=== PATIENT | female | born 1955 | race Caucasian/White ===

== ENCOUNTER → 2019-11-04 10:05 | Outpatient (CLI) | payer OTHER, SELFPAY ==
--- NOTE | ~2019-11-04 | CT_ITS ---
EXAMINATION: CT chest wo con DATE: 11/04/2019 10:33 INDICATION: Solitary pulmonary nodule TECHNIQUE: Computed tomography (CT) of the chest was performed without intravenous contrast. The dose -length product (DLP) was 403.03 mGy-cm. Automated exposure control and iterative reconstruction tech TrashOut were employed. COMPARISON: 03/27/2016 FINDINGS: There are stable nodules of the left upper lobe which measure up to 4 mm. A previously desc ribed right lower lobe nodule is no longer evident, consistent with resolved infection or inflammatio n. No new pulmonary nodules are identified. The lungs are free of acute opacities. There is no pleura l effusion or pneumothorax. No pathologically enlarged thoracic lymph nodes are identified. The heart size is normal. The liver is diffusely low in attenuation when compared with the spleen, consistent with hepatic steatosis. Cholelithiasis is noted. There is moderate thoracic spondylosis. IMPRESSION: 1. Stable left lung nodules, consistent with old granulomatous disease. No new or suspicious pulmonar y nodule identified. Reviewed, dictated and finalized at location A. ATION ADMINISTRATOR IMPRESSION: 1. Stable left lung nodules, consistent with old granulomatous disease. No new or suspicious pulmonary nodule identified.
== END ==
PROVIDERS: Visit Provider Internal Medicine Critical Care Medicine
DX: R91.1 Solitary pulmonary nodule (principal); R91.8 Other nonspecific abnormal finding of lung field
CPT/HCPCS: 71250

== ENCOUNTER 2019-11-12 08:20 | Outpatient (CLI) | payer OTHER, SELFPAY ==
--- NOTE | 2019-11-12 09:52 | PCRCNOTE ---
PT. UNABLE TO DO NIOX TESTING DESPITE MULTIPLE ATTEMPTS
--- NOTE | 2019-11-12 11:01 | WPDPFTINT ---
PFT Interpretation PFT Interpretation: This PFT met all criteria for ATS standards and reproducibility FEV/FVC post bronchodilator 85% of predicted FEV1 83% FVC 71 % TLC 70% RV 64% RV/TLC 35% DLCO 57% of predicted when adjusted for alveolar volume but not adjusted for hemoglobin Flow volume loops showed a restrictictive pattern Impression: A restrictive ventilatory defect is present with moderately reduced diffusion capacity. This may correlate with obesity but ILD, pulmonary fibrosis or other intrinsic lung disease may be present. Clinical and radiographic correlation is advised correlation is advised.
--- NOTE | 2019-11-12 11:10 | WPDSIXMINUTE ---
Six Minute Walk Six Minute Walk: The patients O2 sats started at 98% and dropped as low as 90% Total walk distance 243.84 meters conclusion: While this represents significant exertional hypoxia, she did not drop down to a low enough level to warrant home oxygen therapy.
== END 2019-11-12 08:21 | disposition home or self-care (01) ==
PROVIDERS: PCP Internal Medicine; Visit Provider Internal Medicine Critical Care Medicine
DX: J44.9 Chronic obstructive pulmonary disease, unspecified (principal)
CPT/HCPCS: 94060; 94726; 94729

== ENCOUNTER 2019-11-24 09:06 | Outpatient (CLI) | payer OTHER, SELFPAY ==
--- NOTE | 2019-12-06 16:54 | SLEEP_ITS ---
CPAP titration. DATE OF STUDY: 11/24/2019 ORDERING PHYSICIAN: Fabiana Sarkar M.D. REASON FOR THIS STUDY: Known history of obstructive sleep apnea syndrome, last study was 2013 needs a retitration. HISTORY: This patient is a 64-year-old female, 64 inches tall, weighing 351 pounds with a body mass index of 60.2. She was diagnosed with obstructive sleep apnea syndrome in 2013. On October 04, 2013, she had a split night study with severe apnea with an AHI of 36 associated with continuous snoring and ekoi-md-lgjofvpt myoclonus and multiple oxygen desaturation. Her optimal pressure was 7 cm with correction of respiratory events. Her normal bedtime is around 10:00 p.m. and she wakes between 7 and 7:30 a.m. using an alarm. She has dreams most nights. She wakes 1 or 2 times per week to use the bathroom at night. She drinks 6 cups of coffee in the morning. She has some feet swelling over night and her ankles swell during the day. MEDICAL COMORBIDITIES: Rhinitis, shortness of breath, morbid obesity, hypertension, asthma, hypothyroidism. MEDICATIONS: 1. Symbicort. 2. Lisinopril. 3. Singulair. 4. Levothyroxine. 5. Lasix. 6. Flonase. 7. Cetirizine. HABITS: She has been a lifelong nonsmoker. She drinks significant coffee 6 cups per day. No alcohol. DESCRIPTION OF THE STUDY: On the [place] Sleepiness Scale, her score is not recorded. This was conducted as a full night CPAP titration using the MicroPhage multiple channel system including EOG, EEG, submental EMG, EKG, nasal and oral airflow using thermistors and nasal pressure sensors, chest and abdominal belts, body position data and pulse oximetry. The study was scored using [facility] guidelines. Duration was 403 minutes. Sleep time was 302 minutes. Sleep efficiency was 74.9%. Sleep latency 10.7 minutes. REM latency 68 minutes. She had 32 awakenings and spent 23% of the study, 90.3 minutes awake after sleep onset. She had 6.8% stage 1 sleep, 55.7% stage 2 sleep, 14.5% stage REM. None of this test was in the supine position. Sleep was somewhat fragmented. She had 4 REM cycles. The apnea-hypopnea index was 4.6. These were all obstructive events. Unfortunately, she had no supine REM. She had 18 obstructive hypopneas in non-supine REM for an index of 18.9. She had 5 obstructive hypopneas in non-supine non-REM for an index of 1.2. Non-supine index overall was 4.6. The lowest desaturation was 87%. She had 23 desaturations of 4% or greater for an index of 3.4. She spent 0.3 minutes below 88%, which was 0.1% of the study. Mean saturation was 93.6%. AROUSALS: 192 arousals for an index of 28.6. She had 3 hypopneas causing arousal for an index of 0.4, 188 spontaneous arousals for an index of 28 and 1 limb movement causing arousal for an index of 0.1. LIMB MOVEMENTS: 2 isolated limb movements for an index of 0.4. EKG: Sinus with a mean heart rate of 74. During this titration, the patient started in room 1, but due to technical problems with the pulse oximeter and the head box, the patient was eventually moved to room 3 after switching out equipment, did not correct the problems. She used a medium ResMed AirFit F20 full face mask. She began at 7 cm with heated humidity. She was titrated to a maximum of 14 cm. At this setting, the patient had an apnea-hypopnea index of 2.5, sleep efficiency of 85%, spent 53 minutes in bed, 15 minutes in REM, 32 minutes in non-REM, had a minimum saturation of 92%. This appeared to be the optimal pressure. She had 2 hypopneas at this setting. IMPRESSION: 1. This CPAP titration shows an optimal pressure of 14 cm of water using a medium AirFit F20 full face mask. She did have REM, but she did not have supine REM during the study. We would recomme
== END 2019-11-24 09:07 | disposition home or self-care (01) ==
PROVIDERS: PCP Internal Medicine; Visit Provider Internal Medicine Critical Care Medicine
DX: G47.33 Obstructive sleep apnea (adult) (pediatric) (principal)
CPT/HCPCS: 95811

== ENCOUNTER → 2020-05-30 12:58 | Outpatient (CLI) | payer OTHER, SELFPAY ==
--- NOTE | ~2020-05-30 | MM_ITS ---
EXAMINATION: MM screening arianna BI w varsha HISTORY: Screening mammogram TECHNIQUE: Craniocaudal and mediolateral oblique 3-D tomosynthesis images were obtained and synthetic 2-D images were generated. CAD analysis was submitted and interpreted. COMPARISON: No prior mammogram is available for comparison at this institution. BREAST PARENCHYMAL COMPOSITION: The breasts are almost entirely fatty. FINDINGS: There is no evidence of suspicious mass, calcification, or architectural distortion to sugg est malignancy in either breast. There has been no suspicious interval change. IMPRESSION: 1. No mammographic evidence of malignancy. 2. Recommend routine screening mammography in one year. BI-RADS Category 1: Negative Reviewed, dictated and finalized at location A.
== END ==
PROVIDERS: PCP Internal Medicine; Visit Provider Nurse Practitioner
DX: Z12.31 Encounter for screening mammogram for malignant neoplasm of breast (principal)
CPT/HCPCS: 77063; 77067

== ENCOUNTER 2021-04-20 12:50 | Outpatient (CLI) | payer MEDICARE, SELFPAY ==
--- NOTE | ~2021-04-20 | XR_ITS ---
XR chest 2V DATE: 04/20/2021 13:08 INDICATION: Shortness of breath TECHNIQUE: PA and lateral views COMPARISON: 11/04/2019 CT chest FINDINGS: Heart size is within normal range. No pulmonary vascular congestion or pleural effusion, pu lmonary infiltrate or consolidation or pneumothorax. Degenerative spurring of the thoracic spine. IMPRESSION: No active cardiopulmonary disease Reviewed, dictated and finalized at location A.
--- NOTE | ~2021-04-20 | NM_ITS ---
EXAMINATION: NM pulmonary perfusion DATE: 04/20/2021 13:46 INDICATION: Shortness of breath. TECHNIQUE: 5.5 mCi Tc-99m MAA was administered intravenously for perfusion images. Scintigraphic cherri ges of the chest were obtained. COMPARISON: Chest 2 views 04/20/2021 FINDINGS: Perfusion images show no defects. IMPRESSION: 1. Normal exam. Pulmonary embolism absent. Reviewed, dictated and finalized at location A.
== END 2021-04-20 12:51 | disposition home or self-care (01) ==
LOC: ANHIMG 12:51
PROVIDERS: PCP Internal Medicine; Visit Provider Nurse Practitioner Family
DX: R06.02 Shortness of breath (principal)
CPT/HCPCS: 71046; 78580; A9540

== ENCOUNTER 2021-05-30 01:27 | Day surgery (SDC) | payer MEDICARE, SELFPAY ==
[2021-05-17 13:25] VITALS: BMI 63.6
[2021-05-30 08:33] VITALS: BP 143/65; PULSE 90; RESP 22; TEMP 36.6; O2SAT 96; BMI 64.1
[2021-05-30] MEDS: LACTATED RINGERS 1,000 ML 150 ML IV CONT (08:46)
--- NOTE | 2021-05-30 08:53 | WPDANESEPPF ---
Anes - Initial Pre Proc Eval Procedure: Operation Date: 05/30/21 09:00 Proposed Procedures p Screening Colonoscopy - Solitario Andrea MD Date/Time: 05/30/21 08:53 Surgeon: Solitario Andrea MD Pre Op Diagnosis: neoplasm screening Patient Data Age: 65 Gender: F Height: 1.63 m Weight: 169.6 kg Last Vital Signs Temp 36.6 C 05/30/21 08:33 Pulse 90 05/30/21 08:33 Resp 22 H 05/30/21 08:33 BP 143/65 H 05/30/21 08:33 Pulse Ox 96 05/30/21 08:33 Allergies Allergy/AdvReac Type Severity Reaction Status Date / Time cephalexin Allergy Unknown Unknown Verified 05/30/21 08:31 Penicillins Allergy Unknown Unknown Verified 05/30/21 08:31 Home Medications Medication Instructions Recorded Confirmed Type nystatin 100,000 unit/gram topical 1 applic TOPICAL BID 11/08/19 05/17/21 History powder albuterol sulfate 90 mcg/actuation 2 puff INHALATION Q4-6H PRN gm 12/14/19 05/17/21 History aerosol inhaler cetirizine 10 mg tablet 10 mg PO DAILY 12/14/19 05/17/21 History multivitamin 1 tablet PO DAILY 06/23/20 05/17/21 History oxybutynin chloride 10 mg 10 mg PO DAILY 06/23/20 05/17/21 History tablet,extended release 24 hr fluticasone propionate 50 See Rx Instructions .ROUTE 09/19/20 05/17/21 Rx mcg/actuation nasal .COMPLEX #16 gram spray,suspension furosemide 40 mg tablet 40 mg PO QAM #90 tablet 09/19/20 05/17/21 Rx lisinopril 20 mg tablet 20 mg PO DAILY #90 tablet 09/19/20 05/17/21 Rx montelukast 10 mg tablet 10 mg PO DAILY #90 tablet 09/19/20 05/17/21 Rx budesonide-formoterol HFA 160 See Rx Instructions .ROUTE 09/20/20 05/17/21 Rx mcg-4.5 mcg/actuation aerosol .COMPLEX 90 Days #30.6 g inhaler levothyroxine 112 mcg tablet 112 mcg PO DAILY #90 tablet 01/15/21 05/17/21 Rx Patient hx anesthesia problems: none Family hx anesthesia problems: none PMFSH Past Medical History Medical History (Updated 05/30/21 @ 08:55 by Guilherme Krishnan MD) Asthma Asthma with COPD Body mass index (BMI) of 60.0 to 69.9 in adult COPD (chronic obstructive pulmonary disease) with chronic bronchitis Essential (primary) hypertension Hypothyroidism (acquired) Morbid (severe) obesity due to excess calories Obstructive sleep apnea Other and unspecified hyperlipidemia Family History Family History Father Hypertension Mother Asthma Social History Social History Smoking status: Never smoker Alcohol intake: never Living arrangements: with family Gender identity (if verbalized by the patient): Female Sexual Orientation (if Verbalized by the Patient): Straight or Heterosexual Spiritual care concerns: No Anes - Eval Final PreProcedure Day of Procedure 05/30/21 08:53 Patient weight: super morbidly obese Heart: regular rate and rhythm Lungs: clear to auscultation and normal air movement Airway: Mallampati scale class II Neurological: alert and oriented Last oral intake: >/= 8 hours ASA classification: IV Emergent: no Anesthetic plan: proceed Anesthesia type and monitoring: general GIVS Informed Consent: The patient's anesthetic plan and its attendant risks and benefits were discussed with the patient/family/POA. Questions were solicited and answers provided to the satisfaction of the patient/family/POA.
--- NOTE | 2021-05-30 09:08 | PM.HPGS ---
History of Present Illness History of Present Illness Consent: Risks, benefits, and alternatives have been discussed and questions answered. Patient agrees to proceed with procedure. Chief complaint: neoplasm screening Narrative: Daphne Lopez is a 65 year old female with colon polyp 2015 Review of Systems Constitutional: Constitutional: Denies headache(s) and Denies weakness Eyes: Eyes: Denies blurry vision ENT: Reports Normal hearing present, Denies headache(s) and Denies neck pain Cardiovascular: Cardiovascular: Denies chest pain and Denies dyspnea Respiratory: Respiratory: Denies dyspnea Gastrointestinal: Gastrointestinal: Reports no additional gastrointestinal complaints Genitourinary: Genitourinary: Denies dysuria Musculoskeletal: Musculoskeletal: Denies neck pain Integumentary/Breasts: Skin/Breast: Denies dry skin Neurologic: Reports Normal hearing present, Denies headache(s) and Denies weakness Psychiatric: Psychiatric: Denies anxiety Endocrine: Endocrine: Denies change in body appearance Hematologic/Lymphatic: Hematologic/Lymphatic: Denies easy bleeding Allergic/Immunologic: Allergic/Immunologic: Denies urticaria [facility] Past Medical History Medical History (Updated 05/30/21 @ 09:09 by Solitario Andrea MD) Asthma Asthma with COPD Body mass index (BMI) of 60.0 to 69.9 in adult Colon cancer screening COPD (chronic obstructive pulmonary disease) with chronic bronchitis Essential (primary) hypertension Hypothyroidism (acquired) Morbid (severe) obesity due to excess calories Obstructive sleep apnea Other and unspecified hyperlipidemia Family History Family History Father Hypertension Mother Asthma Social History Social History Smoking status: Never smoker Alcohol intake: never Living arrangements: with family Gender identity (if verbalized by the patient): Female Sexual Orientation (if Verbalized by the Patient): Straight or Heterosexual Spiritual care concerns: No Meds Home Medications and Allergies Home Medications Medication Instructions Recorded Confirmed Type nystatin 100,000 unit/gram topical 1 applic TOPICAL BID 11/08/19 05/17/21 History powder albuterol sulfate 90 mcg/actuation 2 puff INHALATION Q4-6H PRN gm 12/14/19 05/17/21 History aerosol inhaler cetirizine 10 mg tablet 10 mg PO DAILY 12/14/19 05/17/21 History multivitamin 1 tablet PO DAILY 06/23/20 05/17/21 History oxybutynin chloride 10 mg 10 mg PO DAILY 06/23/20 05/17/21 History tablet,extended release 24 hr fluticasone propionate 50 See Rx Instructions .ROUTE 09/19/20 05/17/21 Rx mcg/actuation nasal .COMPLEX #16 gram spray,suspension furosemide 40 mg tablet 40 mg PO QAM #90 tablet 09/19/20 05/17/21 Rx lisinopril 20 mg tablet 20 mg PO DAILY #90 tablet 09/19/20 05/17/21 Rx montelukast 10 mg tablet 10 mg PO DAILY #90 tablet 09/19/20 05/17/21 Rx budesonide-formoterol HFA 160 See Rx Instructions .ROUTE 09/20/20 05/17/21 Rx mcg-4.5 mcg/actuation aerosol .COMPLEX 90 Days #30.6 g inhaler levothyroxine 112 mcg tablet 112 mcg PO DAILY #90 tablet 01/15/21 05/17/21 Rx Allergies Allergy/AdvReac Type Severity Reaction Status Date / Time cephalexin Allergy Unknown Unknown Verified 05/30/21 08:31 Penicillins Allergy Unknown Unknown Verified 05/30/21 08:31 Vital Signs Vital Signs - 24 hr 05/30/21 08:33 Temperature 97.9 F Pulse Rate 90 Respiratory Rate 22 H Blood Pressure 143/65 H Pulse Oximetry 96 Exam Const: General: comfortable and no acute distress HENMT: General nose exam: Normal nares present Eyes: General: appearance normal, both eyes and all related structures Neck: Neck: no JVD Resp: Auscultation: clear to auscultation bilaterally Cardio: Rate: regular rate Rhythm: regular rhythm GI: Inspection: non-distended GI Palp: Yes Soft to
[2021-05-30 10:06] VITALS: BP 147/85; PULSE 85; RESP 28; O2SAT 96
[2021-05-30 10:16] VITALS: BP 121/41; PULSE 79; RESP 22; O2SAT 96
[2021-05-30 10:26] VITALS: BP 147/85; PULSE 85; RESP 28; O2SAT 96
== END 2021-05-30 11:13 | disposition home or self-care (01) ==
PROVIDERS: PCP Internal Medicine; Visit Provider Internal Medicine Gastroenterology
PROC: 0DJD8ZZ Inspection of Lower Intestinal Tract, Via Natural or Artificial Opening Endoscopic (ICD-10-PCS; CPT 45378; principal; 2021-05-30 09:00)
DX: Z12.11 Encounter for screening for malignant neoplasm of colon (principal); K57.30 Diverticulosis of large intestine without perforation or abscess without bleeding; D12.2 Benign neoplasm of ascending colon; K62.1 Rectal polyp; K64.8 Other hemorrhoids; K64.4 Residual hemorrhoidal skin tags; J44.9 Chronic obstructive pulmonary disease, unspecified; I10 Essential (primary) hypertension; E03.9 Hypothyroidism, unspecified; G47.33 Obstructive sleep apnea (adult) (pediatric); E78.5 Hyperlipidemia, unspecified; E66.01 Morbid (severe) obesity due to excess calories; Z68.44 Body mass index [BMI] 60.0-69.9, adult; Z79.51 Long term (current) use of inhaled steroids
CPT/HCPCS: 45385; 45381; 45380; 88305; J2704; J7120

== ENCOUNTER → 2021-06-01 10:27 | Outpatient (CLI) | payer MEDICARE, SELFPAY ==
--- NOTE | ~2021-06-01 | MM_ITS ---
EXAMINATION: MM screening arianna BI w varsha HISTORY: Screening mammogram TECHNIQUE: Craniocaudal and mediolateral oblique 3-D tomosynthesis images were obtained and synthetic 2-D images were generated. CAD analysis was submitted and interpreted. COMPARISON: No prior mammogram is available for comparison at this institution. BREAST PARENCHYMAL COMPOSITION: The breasts are almost entirely fatty. FINDINGS: There is no evidence of suspicious mass, calcification, or architectural distortion to sugg est malignancy in either breast. There has been no suspicious interval change. IMPRESSION: 1. No mammographic evidence of malignancy. 2. Recommend routine screening mammography in one year. BI-RADS Category 1: Negative Reviewed, dictated and finalized at location A.
== END ==
PROVIDERS: Visit Provider Nurse Practitioner
DX: Z12.31 Encounter for screening mammogram for malignant neoplasm of breast (principal)
CPT/HCPCS: 77063; 77067

== ENCOUNTER 2021-06-12 07:38 | Outpatient (RCR) | payer MEDICARE, SELFPAY ==
[2021-04-10 13:45] VITALS: BMI 64.5
== END 2021-07-09 23:59 | disposition home or self-care (01) ==
LOC: ANHWOC 07:38
PROVIDERS: PCP Internal Medicine; Visit Provider Obstetrics & Gynecology Gynecology
DX: S70.321D Blister (nonthermal), right thigh, subsequent encounter (principal)
CPT/HCPCS: 99211; 99212; A9270; G0463

== ENCOUNTER 2021-07-13 12:25 | Outpatient (CLI) | payer MEDICARE, SELFPAY ==
--- NOTE | ~2021-07-13 | CT_ITS ---
EXAMINATION: CT diagnostic chest wo con DATE: 07/13/2021 14:24 INDICATION: Covid 19 infection. Asthma. TECHNIQUE: Computed tomography (CT) of the chest was performed without intravenous contrast. Automate d exposure control and iterative reconstruction technique were employed. Exam dose: 851.70 mGy-cm to sissy exam DLP. COMPARISON: November 04, 2019 CT chest 04/20/2021 2 view chest FINDINGS: Normal heart size. No pericardial or pleural effusion. No thoracic aortic aneurysm. There i s thoracic aortic and some great vessel calcification. No hilar or mediastinal enlargement. No pulmonary infiltrate or consolidation or pulmonary mass lesion. Diffuse hepatic steatosis. Diffuse idiopathic skeletal hyperostosis of the thoracic spine. No suspicious osteolytic or osteoblas tic lesions. IMPRESSION: Diffuse hepatic steatosis Diffuse idiopathic skeletal hyperostosis of the thoracic spine Reviewed, dictated and finalized at Location A. Reviewed, dictated and finalized at location A.
[2021-07-13 13:30] VITALS: PULSE 108; O2SAT 95
[2021-07-13 13:35] VITALS: PULSE 118; O2SAT 93
[2021-07-13 13:50] VITALS: PULSE 92; O2SAT 95
--- NOTE | 2021-07-13 16:13 | HOMEO2EVAL ---
Evaluation was performed at [facility] Home Oxygen Evaluation RC: Home Oxygen (O2) Evaluation Start: 07/13/21 16:12 Freq: Status: Active Protocol: RPE Activity Type Activity Date Activity User E-Sign Co-Sign Detail Recorded Client Recorded Date Recorded By Document 07/13/21 13:30 PARISH [id number] 07/13/21 16:13 PARISH Document 07/13/21 13:35 PARISH [id number] 07/13/21 16:13 PARISH Document 07/13/21 13:50 PARISH [email or web address] 07/13/21 16:13 PARISH 07/13/21 07/13/21 07/13/21 13:30 13:35 13:50 Home O2 Evaluation Test Phase Resting Exercise Resting Oxygen Delivery Room Air Room Air Room Air Pulse Oximetry (90-100 %) 95 93 95 Pulse Rate (60-100 beats/min) 108 H 118 H 92 Ambulation Distance (feet) 400 Home Oxygen Evaluation Comments No home O2 required Treatment Charges O2 Evaluation - Inpatient
--- NOTE | 2021-07-16 09:56 | WPDPFTINT ---
PFT Procedure Performed PFT Procedure Performed Spirometry with Pre/Post Bronchodilator Plethysmography (Lung Vol) Diffusing Cap (DLCO) Flow Vol Loop PFT Interpretation Lung volumes were measured with the body plethysmography method. The diminished across the board lung volumes are indicative of restrictive respiratory disease. Spirometry showed diminished expiratory flow rates and a normal FEV1 to FVC ratio of 78%, also consistent with restrictive respiratory disease. Lung diffusion capacity is borderline normal at 76% predicted. In comparison to a previous study in November of 2019, the post bronchodilator FVC and FEV1 are little changed as is the total lung capacity. The lung diffusion capacity is now 76% from a previous value of 57%. The flow volume loop is consistent with restrictive respiratory disease. Overall this pulmonary function testing is consistent with morbid obesity. Clinical correlation advised. Impression: Mild restrictive respiratory disease. Borderline normal lung diffusion capacity.
== END 2021-07-13 12:26 | disposition home or self-care (01) ==
PROVIDERS: PCP Internal Medicine; Visit Provider Internal Medicine Pulmonary Disease
DX: J45.909 Unspecified asthma, uncomplicated (principal); J18.9 Pneumonia, unspecified organism; R94.2 Abnormal results of pulmonary function studies
CPT/HCPCS: 71250; 94060; 94618; 94726; 94729

== ENCOUNTER 2021-07-19 08:08 | Outpatient (CLI) | payer MEDICARE, SELFPAY ==
--- NOTE | ~2021-07-19 | US_ITS ---
EXAMINATION: US art doppler w press LE BI EXAM DATE: 07/19/2021 08:52 INDICATION: Cesar Leg Pain;Cesar Le Edema;Decreased Pedal Pulses Pain. TECHNIQUE: Segmental pressures and plethysmographic and Doppler waveforms of the brachial and lower e xtremity arteries were obtained. There is no prior study for comparison. FINDINGS: Right and left brachial artery pressures of 193 mm Hg and 194 mm Hg, respectively, are concordant (no rmal difference <= 30 mmHg). RIGHT LEG: The ankle-brachial index (ANNALEE) is 0.89 (normal >= 0.9-1). The great toe-brachial index (TBI) is 0.57 (normal >= 0.65). The lower extremity ratios, segmental pressure gradients as follows; Dorsalis pedis: 0.78 (151 mmHg). Posterior tibial: 0.89 (172 mmHg). (Normal gradients <= 20-30 mmHg between adjacent levels on the same leg or the same levels on the two legs). Arterial waveforms are monophasic. LEFT LEG: The ankle-brachial index (ANNALEE) is 0.73 (normal >= 0.9-1). The great toe-brachial index (TBI) is 0.55 (normal >= 0.65). The lower extremity ratios, segmental pressure gradients as follows; Dorsalis pedis: 0.62 (121 mmHg). Posterior tibial: 0.73 (141 mmHg). (Normal gradients <= 20-30 mmHg between adjacent levels on the same leg or the same levels on the two legs). Arterial waveforms are biphasic popliteal, dorsalis pedis, otherwise monophasic. IMPRESSION: 1. Right ankle-brachial index 0.89, normal. 2. Left ankle-brachial index 0.73, mildly decreased. 3. Segmental pressures as above. Reviewed, dictated and finalized at location A. CARE PROFESSIONAL
== END 2021-07-19 08:09 | disposition home or self-care (01) ==
PROVIDERS: PCP Internal Medicine; Visit Provider Internal Medicine Cardiovascular Disease
DX: M79.604 Pain in right leg (principal); M79.605 Pain in left leg; R60.0 Localized edema; R09.89 Other specified symptoms and signs involving the circulatory and respiratory systems
CPT/HCPCS: 93923

== ENCOUNTER 2021-11-19 12:27 | Outpatient (CLI) | payer MEDICARE, SELFPAY ==
--- NOTE | 2021-11-20 11:45 | WPDMETH ---
Methacholine Procedure Perform Procedure Performed Methacholine Challenge Methacholine Challenge Methacholine challenge testing was performed with increasing doses of nebulized methacholine according to ATS/ERS 2017 guidelines. Following administration of over 464 mcg of nebulized methacholine (level 5, provocative dose), the measured FEV1 decreased by approximately 3% from the baseline measurement. Impression: Negative methacholine challenge testing. Normal airway hyperresponsiveness.
== END 2021-11-19 12:28 | disposition home or self-care (01) ==
PROVIDERS: PCP Family Medicine; Visit Provider Internal Medicine Pulmonary Disease
DX: R06.02 Shortness of breath (principal)
CPT/HCPCS: 94070; J7674

== ENCOUNTER 2021-12-05 13:29 | Outpatient (CLI) | payer MEDICARE, SELFPAY ==
--- NOTE | ~2021-12-05 | US_ITS ---
EXAMINATION: US carotid duplex BI DATE: 12/05/2021 14:19 INDICATION: Right carotid bruit TECHNIQUE: Grayscale, color Doppler, and pulsed Doppler images of the cervical carotid arteries were obtained. The degree of vessel stenosis is placed in one of the following categories: normal, <50%, 5 0-69%, >=70% but less than near-occlusion, near-occlusion, or total occlusion. Note that percent sten osis relative to normal distal artery lumen diameter is indirectly measured from velocity measurement s as described by Joseph, et al. Radiology 2003; [id number]. COMPARISON: None. FINDINGS: RIGHT: The right common carotid artery (CCA) peak systolic velocity (PSV) is 124 cm/s. The right internal ca rotid artery (ICA) PSV is 131 cm/s. The right ICA end-diastolic velocity (EDV) is 33 cm/s. The right ICA/CCA PSV ratio is 1.1. Grayscale and color Doppler images yield an estimate of 50-69% diameter red uction from plaque in the ICA. The external carotid artery (ECA) PSV is 141 cm/s. There is antegrade flow in the right vertebral artery. LEFT: The left CCA PSV is 110 cm/s. The left ICA PSV is 122 cm/s. The left ICA EDV is 23 cm/s. The left ICA /CCA PSV ratio is 1.1. Grayscale and color Doppler images yield an estimate of <50% diameter reductio n from plaque in the ICA. The ECA PSV is 89 cm/s. There is antegrade flow in the left vertebral arter y. IMPRESSION: 1. 50-69% stenosis in the right internal carotid artery. 2. <50% stenosis in the left internal carotid artery. Reviewed, dictated and finalized at location A.
== END 2021-12-05 13:30 | disposition home or self-care (01) ==
LOC: ANHIMG 13:32
PROVIDERS: PCP Family Medicine; Visit Provider Internal Medicine Cardiovascular Disease
DX: R09.89 Other specified symptoms and signs involving the circulatory and respiratory systems (principal); I65.23 Occlusion and stenosis of bilateral carotid arteries
CPT/HCPCS: 93880

== ENCOUNTER 2022-01-29 01:19 | Day surgery (SDC) | payer MEDICARE, SELFPAY ==
[2022-01-15 14:19] VITALS: BMI 66.1
[2022-01-29 07:45] VITALS: BP 142/63; PULSE 93; RESP 18; TEMP 36.8; O2SAT 97; BMI 62.6
[2022-01-29] MEDS: LACTATED RINGERS 1,000 ML 150 ML IV CONT (08:00)
[2022-01-29 08:03] LABS: Glucose Point of Care 194 mg/dl (65-105)
--- NOTE | 2022-01-29 08:27 | WPDANESEPPF ---
Anes - Initial Pre Proc Eval Procedure: Operation Date: 01/29/22 09:00 Proposed Procedures p Screening Colonoscopy - Solitario Andrea MD Date/Time: 01/29/22 08:27 Surgeon: Solitario Andrea MD Pre Op Diagnosis: hx of colon polyps Patient Data Age: 66 Gender: F Height: 1.57 m Weight: 155.4 kg Last Vital Signs Temp 36.8 C 01/29/22 07:45 Pulse 93 01/29/22 07:45 Resp 18 01/29/22 07:45 BP 142/63 H 01/29/22 07:45 Pulse Ox 97 01/29/22 07:45 O2 Del Method Room Air 01/29/22 07:45 Allergies Allergy/AdvReac Type Severity Reaction Status Date / Time cephalexin Allergy Unknown Unknown Verified 01/29/22 07:44 Penicillins Allergy Unknown Unknown Verified 01/29/22 07:44 Home Medications Medication Instructions Recorded Confirmed Type nystatin 100,000 unit/gram topical 1 applic topical BID 11/08/19 01/29/22 History powder cetirizine 10 mg tablet (Zyrtec) 10 mg PO DAILY 12/14/19 01/29/22 History multivitamin 1 tablet PO DAILY 06/23/20 01/29/22 History oxybutynin chloride 10 mg 10 mg PO DAILY 06/23/20 01/29/22 History tablet,extended release 24 hr fluticasone propionate 50 See Rx Instructions .Route 09/19/20 01/29/22 Rx mcg/actuation nasal .COMPLEX #16 grams spray,suspension lisinopril 20 mg tablet 20 mg PO DAILY #90 tabs 09/19/20 01/29/22 Rx montelukast 10 mg tablet 10 mg PO DAILY #90 tabs 09/19/20 01/29/22 Rx (Singulair) levothyroxine 112 mcg tablet 112 mcg PO DAILY #90 tabs 01/15/21 01/29/22 Rx albuterol sulfate 90 mcg/actuation 2 puff inhalation Q4-6H PRN 06/20/21 01/29/22 Rx aerosol inhaler Shortness Of Breath #8.5 grams glipizide 5 mg tablet 10 mg PO BID 10/22/21 01/29/22 History melatonin 10 mg tablet 10 mg PO QHS 10/22/21 01/29/22 History metformin 500 mg tablet 500 mg PO BID 10/22/21 01/29/22 History metoprolol succinate 25 mg 12.5 mg PO .am 10/22/21 01/29/22 History tablet,extended release 24 hr metoprolol tartrate 25 mg tablet 12.5 mg PO .pm 10/22/21 01/29/22 History furosemide 80 mg tablet 80 mg PO DAILY 01/15/22 01/29/22 History gabapentin 100 mg capsule 100 mg PO HS 01/15/22 01/29/22 History rosuvastatin 10 mg tablet 10 mg PO DAILY 01/15/22 01/29/22 History Laboratory Tests 01/29/22 07:54 POC Capillary Glucose 194 mg/dl H mg/dl (65-105) Patient hx anesthesia problems: none Family hx anesthesia problems: none Results Review: All pre-operative results and documents have been reviewed as part of the pre-operative evaluation. [facility] Past Medical History Medical History Asthma Asthma with COPD Body mass index (BMI) of 60.0 to 69.9 in adult Colon cancer screening COPD (chronic obstructive pulmonary disease) with chronic bronchitis Essential (primary) hypertension Hypothyroidism (acquired) Morbid (severe) obesity due to excess calories Obstructive sleep apnea Other and unspecified hyperlipidemia Family History Family History Father Hypertension Mother Asthma Social History Social History Smoking status: Never smoker Alcohol intake: never Substance use: never Substance use type: does not use Living arrangements: with family Gender identity (if verbalized by the patient): Female Sexual Orientation (if Verbalized by the Patient): Straight or Heterosexual Spiritual care concerns: No Anes - Eval Final PreProcedure Day of Procedure 01/29/22 08:27 Heart: regular rate and rhythm Lungs: clear to auscultation Neurological: alert and oriented ASA classification: IV Emergent: no Anesthesia type and monitoring: general GIVS and standard monitoring Results Review: All pre-operative results and documents have been reviewed as part of the pre-operative evaluation. Informed Consent: The patient's anesthetic plan and its attendant risks and be
--- NOTE | 2022-01-29 08:39 | PM.HPGS ---
History of Present Illness History of Present Illness Consent: Risks, benefits, and alternatives have been discussed and questions answered. Patient agrees to proceed with procedure. Chief complaint: hx of colon polyps Narrative: Daphne Lopez is a 66 year old female who had large ascending polyp removed by piece-meal fashion 05/2021, here to get another colonoscopy Review of Systems Constitutional: Constitutional: Denies headache(s) Eyes: Eyes: Denies blurry vision ENT: Reports Normal hearing present and Denies neck pain Cardiovascular: Cardiovascular: Denies chest pain and Denies dyspnea Respiratory: Respiratory: Denies dyspnea Gastrointestinal: Gastrointestinal: Reports no additional gastrointestinal complaints Genitourinary: Genitourinary: Denies dysuria Musculoskeletal: Musculoskeletal: Denies neck pain Integumentary/Breasts: Skin/Breast: Denies dry skin Neurologic: Reports Normal hearing present, Denies headache(s) and Denies weakness Psychiatric: Psychiatric: Denies anxiety Endocrine: Endocrine: Denies change in body appearance Hematologic/Lymphatic: Hematologic/Lymphatic: Denies easy bleeding [facility] Past Medical History Medical History (Updated 01/29/22 @ 08:40 by Solitario Andrea MD) Adenomatous colon polyp Asthma Asthma with COPD Body mass index (BMI) of 60.0 to 69.9 in adult Colon cancer screening COPD (chronic obstructive pulmonary disease) with chronic bronchitis Essential (primary) hypertension Hypothyroidism (acquired) Morbid (severe) obesity due to excess calories Obstructive sleep apnea Other and unspecified hyperlipidemia Family History Family History Father Hypertension Mother Asthma Social History Social History Smoking status: Never smoker Alcohol intake: never Substance use: never Substance use type: does not use Living arrangements: with family Gender identity (if verbalized by the patient): Female Sexual Orientation (if Verbalized by the Patient): Straight or Heterosexual Spiritual care concerns: No Meds Home Medications and Allergies Home Medications Medication Instructions Recorded Confirmed Type nystatin 100,000 unit/gram topical 1 applic topical BID 11/08/19 01/29/22 History powder cetirizine 10 mg tablet (Zyrtec) 10 mg PO DAILY 12/14/19 01/29/22 History multivitamin 1 tablet PO DAILY 06/23/20 01/29/22 History oxybutynin chloride 10 mg 10 mg PO DAILY 06/23/20 01/29/22 History tablet,extended release 24 hr fluticasone propionate 50 See Rx Instructions .Route 09/19/20 01/29/22 Rx mcg/actuation nasal .COMPLEX #16 grams spray,suspension lisinopril 20 mg tablet 20 mg PO DAILY #90 tabs 09/19/20 01/29/22 Rx montelukast 10 mg tablet 10 mg PO DAILY #90 tabs 09/19/20 01/29/22 Rx (Singulair) levothyroxine 112 mcg tablet 112 mcg PO DAILY #90 tabs 01/15/21 01/29/22 Rx albuterol sulfate 90 mcg/actuation 2 puff inhalation Q4-6H PRN 06/20/21 01/29/22 Rx aerosol inhaler Shortness Of Breath #8.5 grams glipizide 5 mg tablet 10 mg PO BID 10/22/21 01/29/22 History melatonin 10 mg tablet 10 mg PO QHS 10/22/21 01/29/22 History metformin 500 mg tablet 500 mg PO BID 10/22/21 01/29/22 History metoprolol succinate 25 mg 12.5 mg PO .am 10/22/21 01/29/22 History tablet,extended release 24 hr metoprolol tartrate 25 mg tablet 12.5 mg PO .pm 10/22/21 01/29/22 History furosemide 80 mg tablet 80 mg PO DAILY 01/15/22 01/29/22 History gabapentin 100 mg capsule 100 mg PO HS 01/15/22 01/29/22 History rosuvastatin 10 mg tablet 10 mg PO DAILY 01/15/22 01/29/22 History Allergies Allergy/AdvReac Type Severity Reaction Status Date / Time cephalexin Allergy Unknown Unknown Verified 01/29/22 07:44 Penicillins Allergy Unknown Unknown Verified 01/29/22 07:44 Vital Signs Vital Signs - 24 hr 01/29/22 07:45 Temperature 98.2 F Pulse
[2022-01-29 09:07] VITALS: BP 104/63; PULSE 79; RESP 24; O2SAT 97
[2022-01-29 09:17] VITALS: BP 135/73; PULSE 75; RESP 21; O2SAT 98
[2022-01-29 09:37] VITALS: BP 130/75; PULSE 77; RESP 22; O2SAT 99
== END 2022-01-29 09:38 | disposition home or self-care (01) ==
PROVIDERS: PCP Family Medicine; Visit Provider Internal Medicine Gastroenterology
PROC: 0DJD8ZZ Inspection of Lower Intestinal Tract, Via Natural or Artificial Opening Endoscopic (ICD-10-PCS; CPT 45378; principal; 2022-01-29 09:00)
DX: Z12.11 Encounter for screening for malignant neoplasm of colon (principal); D12.2 Benign neoplasm of ascending colon; K64.8 Other hemorrhoids; K64.4 Residual hemorrhoidal skin tags; K63.5 Polyp of colon; J44.9 Chronic obstructive pulmonary disease, unspecified; J45.909 Unspecified asthma, uncomplicated; I10 Essential (primary) hypertension; G47.33 Obstructive sleep apnea (adult) (pediatric); E78.5 Hyperlipidemia, unspecified; E03.9 Hypothyroidism, unspecified; Z79.84 Long term (current) use of oral hypoglycemic drugs; Z79.51 Long term (current) use of inhaled steroids
CPT/HCPCS: 45385; 82948; 88305; J2704; J7120

== ENCOUNTER → 2022-06-14 10:20 | Outpatient (CLI) | payer MEDICARE, SELFPAY ==
--- NOTE | ~2022-06-14 | MM_ITS ---
EXAMINATION: MM screening [facility] BI w varsha HISTORY: Screening mammogram TECHNIQUE: Craniocaudal and mediolateral oblique 3-D tomosynthesis images were obtained and synthetic 2-D images were generated. CAD analysis was submitted and interpreted. COMPARISON: 06/01/2021, 05/30/2020, 12/27/2015 BREAST PARENCHYMAL COMPOSITION: The breasts are almost entirely fatty. FINDINGS: No suspicious mass, calcification, or architectural distortion are identified in either brennan ast to suggest malignancy. There has been no suspicious interval change. IMPRESSION: 1. No mammographic evidence of malignancy. 2. Recommend routine screening mammography in one year. BI-RADS Category 1: Negative Reviewed, dictated and finalized at location A.
== END ==
PROVIDERS: PCP Family Medicine; Visit Provider Nurse Practitioner
DX: Z12.31 Encounter for screening mammogram for malignant neoplasm of breast (principal)
CPT/HCPCS: 77063; 77067

== ENCOUNTER 2023-02-12 13:42 | Outpatient (CLI) | payer MEDICARE, SELFPAY ==
--- NOTE | ~2023-02-12 | US_ITS ---
EXAMINATION: US carotid duplex BI DATE: 02/12/2023 15:44 INDICATION: Bilateral carotid artery stenosis TECHNIQUE: Grayscale, color Doppler, and pulsed Doppler images of the cervical carotid arteries were obtained. The degree of vessel stenosis is placed in one of the following categories: normal, <50%, 5 0-69%, >=70% but less than near-occlusion, near-occlusion, or total occlusion. Note that percent sten osis relative to normal distal artery lumen diameter is indirectly measured from velocity measurement s as described by Joseph, et al. Radiology 2003; 229:340-346. COMPARISON: 12/05/2021 FINDINGS: RIGHT: The right common carotid artery (CCA) peak systolic velocity (PSV) is 102 cm/s. The right internal ca rotid artery (ICA) PSV is 77 cm/s. The right ICA end-diastolic velocity (EDV) is 24 cm/s. The right I CA/CCA PSV ratio is 0.8. Grayscale and color Doppler images yield an estimate of less than 50% diamet er reduction from plaque in the ICA. The external carotid artery (ECA) PSV is 88 cm/s. There is anteg rade flow in the right vertebral artery. LEFT: The left CCA PSV is 75 cm/s. The left ICA PSV is 75 cm/s. The left ICA EDV is 25 cm/s. The left ICA/C CA PSV ratio is 1.0. Grayscale and color Doppler images yield an estimate of less than 50% diameter r eduction from plaque in the ICA. The ECA PSV is 92 cm/s. There is antegrade flow in the left vertebra l artery. IMPRESSION: 1. <50% stenosis in the right internal carotid artery. 2. <50% stenosis in the left internal carotid artery. Reviewed, dictated and finalized at location F.
--- NOTE | ~2023-02-12 | US_ITS ---
EXAMINATION: US art doppler w press LE BI DATE: 02/12/2023 15:45 INDICATION: Peripheral arterial disease. TECHNIQUE: Segmental pressures and plethysmographic and Doppler waveforms of the brachial and lower e xtremity arteries were obtained. COMPARISON: Arterial Doppler and segmental pressures 07/19/2021. FINDINGS: Right and left brachial artery pressures of 127 mm Hg and 132 mm Hg, respectively, are concordant (no rmal difference <= 30 mmHg). The right thigh pressures could not be measured due to inability to cuff occlude the arteries. The be low-knee pressure index is 1.09. The right ankle-brachial index (NANALEE) is 0.88 (normal >= 0.9-1.0). Th e right great toe-brachial index (TBI) is 0.58 (normal >= 0.65). Arterial Doppler waveforms are bipha sic from common femoral artery to the ankle. The left thigh pressures and below-knee pressure could not be measured due to inability to cuff occlu de the arteries. The left ANNALEE is 0.92. The left TBI is 0.17. Arterial Doppler waveforms are biphasic from common femoral artery to the ankle. IMPRESSION: 1. Mildly decreased ABIs with interval improvement on the left, consistent with arterial occlusive di sease. Reviewed, dictated and finalized at location A. IMPRESSION: 1. Mildly decreased ABIs with interval improvement on the left, consistent with arterial occlusive disease.
== END 2023-02-12 13:43 | disposition home or self-care (01) ==
PROVIDERS: PCP Family Medicine; Visit Provider Internal Medicine Cardiovascular Disease
DX: I65.23 Occlusion and stenosis of bilateral carotid arteries (principal); I73.9 Peripheral vascular disease, unspecified
CPT/HCPCS: 93880; 93923

== ENCOUNTER 2023-03-06 01:50 | Day surgery (SDC) | payer MEDICARE, SELFPAY ==
[2023-03-05 14:20] VITALS: BMI 57.7
[2023-03-06] VITALS (10 sets, daily range): BP systolic 103–134; BP diastolic 41–92; PULSE 64–69; RESP 14–22; TEMP 36.4; O2SAT 99–100; BMI 59.0
[2023-03-06 07:28] LABS: Basophils Absolute Auto 0.1 K/mm3 (0.0-0.1); Basophils Percent Auto 0.5 % (0.2-1.2); Eosinophils Absolute Auto 0.4 K/mm3 (0-0.3); Eosinophils Percent Auto 3.6 % (0-4.4); Hematocrit 38.1 % (37.0-47.0); Hemoglobin 12.1 g/dL (12.0-15.0); Immature Granulocyte Absolute 0.04 K/mm3 (0.00-0.031); Immature Granulocyte Percent A 0.4 % (0-0.5); Lymphocytes Absolute Auto 3.13 K/mm3 (0.9-3.2); Lymphocytes Percent Auto 30.8 % (18.3-44.2); Mean Corpuscular HGB Conc 31.8 g/dl (32-36); Mean Corpuscular Hemoglobin 26.7 pg (26-34); Mean Corpuscular Volume 83.9 fl (80-100); Mean Platelet Volume 10.1 fl (7.4-10.4); Monocytes Absolute Auto 0.9 K/mm3 (0.1-0.6); Monocytes Percent Auto 8.7 % (2.6-8.5); Neutrophils Absolute Auto 5.7 K/mm3 (1.3-6.7); Platelet Count Result 333 k/mm3 (150-375); Red Blood Count 4.54 M/mm3 (4.2-5.4); Red Cell Distribution Width 15.3 % (11.5-14.5); White Blood Count 10.2 K/mm3 (4.5-10.0)
[2023-03-06 07:38] LABS: Anion Gap 6 mmol/L (8-16); Blood Urea Nitrogen 21 mg/dL (7-17); Calcium 9.4 mg/dL (8.4-10.2); Carbon Dioxide 34 mmol/L (22-30); Chloride 98 mmol/L (98-107); Estimated CRCL calculation 116 ml/min; Estimated Glomerular Filt Rate > 60; Glucose 117 mg/dL (65-110); Potassium 3.5 mmol/L (3.4-5.0); Sodium 138 mmol/L (137-145)
--- NOTE | 2023-03-06 09:55 | WPDHPUPDATE1 ---
History and Physical Update Update Date/Time: 03/06/23 09:55 History and Physical has been reviewed, including an updated exam of the patient. There are NO changes in the patient's condition. Risks, benefits, and alternatives have been discussed and questions answered. Patient agrees to proceed with procedure.
--- NOTE | 2023-03-06 09:55 | WPDMODSED ---
Moderate Sedation Note-Pt Data Patient Data Diagnosis: Dyspnea on exertion, abnormal stress test Present Complaint: Dyspnea on exertion, abnormal stress test Procedure to be performed/Plan: Coronary angiography, left heart cath, +/- percutaneous coronary intervention Allergies Allergy/AdvReac Type Severity Reaction Status Date / Time cephalexin Allergy Unknown Unknown Verified 03/06/23 07:14 Penicillins Allergy Unknown Unknown Verified 03/06/23 07:14 Home Medications Medication Instructions Recorded Confirmed Type nystatin 100,000 unit/gram topical 1 applic topical BID PRN RASH 11/08/19 03/05/23 History powder cetirizine 10 mg tablet (Zyrtec) 10 mg PO DAILY 12/14/19 03/05/23 History multivitamin 1 tablet PO DAILY 06/23/20 03/05/23 History oxybutynin chloride 10 mg 10 mg PO DAILY 06/23/20 03/05/23 History tablet,extended release 24 hr lisinopril 20 mg tablet 20 mg PO DAILY #90 tabs 09/19/20 03/05/23 Rx montelukast 10 mg tablet 10 mg PO DAILY #90 tabs 09/19/20 03/05/23 Rx (Singulair) levothyroxine 112 mcg tablet 112 mcg PO DAILY #90 tabs 01/15/21 03/05/23 Rx glipizide 5 mg tablet 10 mg PO BID 10/22/21 03/05/23 History metformin 500 mg tablet 500 mg PO QAM 10/22/21 03/05/23 History metoprolol tartrate 25 mg tablet 12.5 mg PO .pm 10/22/21 03/05/23 History furosemide 80 mg tablet 80 mg PO DAILY 01/15/22 03/05/23 History gabapentin 100 mg capsule 200 mg PO DAILY 01/15/22 03/05/23 History rosuvastatin 10 mg tablet 10 mg PO DAILY 01/15/22 03/05/23 History aspirin 81 mg tablet 81 mg PO DAILY 03/05/23 03/05/23 History fluticasone propionate 50 2 spray intranasal BID 03/05/23 03/05/23 History mcg/actuation nasal spray,suspension gabapentin 100 mg capsule 300 mg PO HS 03/05/23 03/05/23 History mecobalamin (vitamin B12) 1,000 1,000 mcg PO DAILY 03/05/23 03/05/23 History mcg chewable tablet (B12 Active) metformin 500 mg tablet 1,000 mg PO HS 03/05/23 03/05/23 History vitamin B complex 1 cap PO DAILY 03/05/23 03/05/23 History Current Medications: Active Medications Sodium Chloride (Normal Saline Iv) 500 mls @ 100 mls/hr IV CONT .Q5H [facility] Sedation/Anesthesia: No previous sedation/anesthesia problems (including family history). [facility] Past Medical History Medical History Adenomatous colon polyp Asthma Asthma with COPD Body mass index (BMI) of 60.0 to 69.9 in adult Colon cancer screening COPD (chronic obstructive pulmonary disease) with chronic bronchitis Essential (primary) hypertension Hypothyroidism (acquired) Morbid (severe) obesity due to excess calories Obstructive sleep apnea Other and unspecified hyperlipidemia Family History Family History Father Hypertension Mother Asthma Social History Social History Smoking status: Never smoker Alcohol intake: never Substance use: never Substance use type: does not use Living arrangements: alone Gender identity (if verbalized by the patient): Female Sexual Orientation (if Verbalized by the Patient): Straight or Heterosexual Spiritual care concerns: No Mod Sed Physical Exam Physical Exam Pre Procedural Exam: Normal: Appearance, Lungs, Heart Rate, Heart Rhythm, Neuro Exam, Abdomen, Extremities and Skin Hours since solid foods: 12 Hours since liquid intake: 8 Mallampati Classification: class III Internal Medicine - PN: Obj Da Vital Signs Vital Signs: Vital Signs - 24 hr 03/06/23 07:15 Temperature 36.4 C L Pulse Rate 68 Respiratory Rate 14 Blood Pressure 126/41 L Pulse Oximetry 99 Oxygen Delivery Room Air Meds/Results Medications: Active Medications Generic Name Dose Route Start Last Admin Trade Name Freq PRN Reason Stop Dose Admin Sodium Chloride 500 mls @ 100 mls/hr 03/06/23 07:00 Normal Saline Iv IV CONT .Q5H [facility] Labs 03/06/23 07:11
--- NOTE | 2023-03-06 10:01 | WPDCARDPROC ---
Cardiac Cath Procedure Note Date of procedure:: 03/06/23 Performing physician:: CATHETERIZATION LABORATORY REPORT Procedure Date: 03/06/2023 Component Assembler Supervisor: Abhijeet Lee M.D., [facility]? Referring Physician: Cristian Anderson M.D. ? Anesthesia: Versed and Fentanyl were ordered and given in my presence at 10:27, procedure ended at 10:46. Supervision of nurse monitored moderate sedation with Versed and Fentanyl was provided for 19 minutes. Total of Versed 2mg and Fentanyl 50mcg were administered by the Ems Helicopter Pilot RN Naila Loo. Pre-op Diagnosis: Coronary artery disease Post-op Diagnosis: 1. Non-obstructive coronary artery disease with mild disease of the mid RCA. 2. Elevated left ventricular end-diastolic pressure of 25mmHg Procedure(s): 1. Moderate sedation 2. Ultrasound guided access of the right radial artery 3. Coronary angiography 4. Left heart catheterization Access Site: Right radial artery Brief History and Clinical Indications: Patient is a 67 year old female with dyspnea on exertion who is referred for cardiac catheterization for abnormal stress test. All risks, benefits and alternatives to left heart catheterization with or without percutaneous coronary intervention was discussed at length with the patient. Risk of complications including but not limited to bleeding, infection, arrhythmia, stroke, worsening kidney function, blood loss, groin hematoma, limb loss, emergency coronary artery bypass grafting, and even were discussed with the patient and all questions were answered. The patient understood and wished to proceed. Time out called, patient name, date of , medical record number, allergies, procedure performed, identify Component Assembler Supervisor, patient and staff member concurred with accurate data, procedure carried on. Findings: LEFT HEART CATHETERIZATION FINDINGS: 1. Left main: Large caliber vessel. The left main coronary artery is widely patent without any significant obstructive disease. 2. Left anterior descending: Large caliber vessel. The LAD and the diagonal branches have mild luminal irregularities without any significant obstructive angiographic disease. 3. Left circumflex: Large caliber vessel. The left circumflex artery and the main marginal branches have mild luminal irregularities without any significant obstructive angiographic disease. 4. Right coronary artery: Large caliber vessel. The mid RCA has a mild 20-30% stenosis, otherwise remainder of the RCA has mild luminal irregularities without any significant obstructive angiographic disease. The RCA is the dominant vessel. 5. Left ventricle: A. End-diastolic pressure 25mmHg. B. LV gram deferred. C. No significant gradient across aortic valve on catheter pullback. Description of Procedure: Informed consent signed and placed in the chart. Patient transferred to director of labor relations room. Prepped and draped in usual sterile fashion. 2% lidocaine injected subcutaneously in right wrist area. 22-gauge venipuncture catheter used to access the right radial artery under ultrasound guidance. 6-FR slender sheath placed in right radial artery. Nitroglycerine and Verapamil were given intraarterial through the sheath. Versacore wire advanced under fluoroscopy 5F Tig 4 diagnostic catheter engaged Left Main Coronary Artery. 5F Tig 4 diagnostic catheter engaged Right Coronary Artery Multiple orthogonal angiogram obtained and reviewed 5F Tig 4 diagnostic catheter crossed aortic valve to obtain LVEDP, LV angiogram deferred. Hemostasis was achieved by application of TR band. ? Assessment: 1. Non-obstructive coronary artery disease with mild disease of the mid RCA. 2. Elevated left ventricular end-diastolic pressure of 25mmHg Post Operative Condition: Stable No significant blood loss Disposition: Home Plan: The patient will be monitored in the recovery area. The above findings were discussed with the referring physician. Continue aggressive medical therapy
== END 2023-03-06 14:00 | disposition home or self-care (01) ==
PROVIDERS: PCP Family Medicine; Visit Provider Internal Medicine
PROC: 4A023N7 Measurement of Cardiac Sampling and Pressure, Left Heart, Percutaneous Approach (ICD-10-PCS; CPT 93452; principal; 2023-03-06 08:30)
DX: I25.10 Atherosclerotic heart disease of native coronary artery without angina pectoris (principal); R94.39 Abnormal result of other cardiovascular function study; J44.9 Chronic obstructive pulmonary disease, unspecified; G47.33 Obstructive sleep apnea (adult) (pediatric); E78.49 Other hyperlipidemia; E03.9 Hypothyroidism, unspecified; E66.01 Morbid (severe) obesity due to excess calories; Z68.43 Body mass index [BMI] 50.0-59.9, adult; Z79.84 Long term (current) use of oral hypoglycemic drugs; Z79.82 Long term (current) use of aspirin
CPT/HCPCS: 36415; 80048; 85025; 93458; C1769; C1887; C1894; J1644; J2250; J3010

== ENCOUNTER → 2023-07-01 13:59 | Outpatient (CLI) | payer MEDICARE, SELFPAY ==
--- NOTE | ~2023-07-01 | MM_ITS ---
EXAMINATION: MM screening [facility] BI w varsha HISTORY: Screening mammogram TECHNIQUE: Craniocaudal and mediolateral oblique 3-D tomosynthesis images were obtained and synthetic 2-D images were generated. CAD analysis was submitted and interpreted. COMPARISON: 06/14/2022, 05/28/2021, 05/30/2020 bilateral screening mammogram examinations BREAST PARENCHYMAL COMPOSITION: The breasts are almost entirely fatty. FINDINGS: There is no evidence of suspicious mass, calcification, or architectural distortion to sugg est malignancy in either breast. There has been no suspicious interval change. IMPRESSION: 1. No mammographic evidence of malignancy. 2. Recommend routine screening mammography in one year. BI-RADS Category 1: Negative Reviewed, dictated and finalized at location A.
== END ==
PROVIDERS: PCP Family Medicine; Visit Provider Nurse Practitioner
DX: Z12.31 Encounter for screening mammogram for malignant neoplasm of breast (principal)
CPT/HCPCS: 77063; 77067

== ENCOUNTER 2024-06-24 01:29 | Day surgery (SDC) | payer MEDICARE, SELFPAY ==
[2024-06-03 14:53] VITALS: BMI 59.4
--- NOTE | 2024-06-23 17:49 | P.PNAN_ITS ---
Anes - Eval Pre Procedure Procedure: Operation Date: 06/24/24 07:30 Proposed Procedures p Colonoscopy - Solitario Andrea MD Date/Time: 06/23/24 17:49 Pre Op Diagnosis: Personal hx. colon polyps Patient Data Age: 68 Gender: F Height: 1.63 m Weight: 157 kg Allergies Allergy/AdvReac Type Severity Reaction Status Date / Time cephalexin Allergy Unknown Unknown Verified 06/03/24 14:47 Penicillins Allergy Unknown Unknown Verified 06/03/24 14:47 Home Medications Medication Instructions Recorded Confirmed Type nystatin 100,000 unit/gram topical 1 applic topical BID PRN RASH 11/08/19 06/03/24 History powder cetirizine 10 mg tablet (Zyrtec) 10 mg PO DAILY 12/14/19 06/03/24 History multivitamin 1 tablet PO DAILY 06/23/20 06/03/24 History oxybutynin chloride 10 mg 10 mg PO DAILY 06/23/20 06/03/24 History tablet,extended release 24 hr lisinopril 20 mg tablet 20 mg PO DAILY #90 tabs 09/19/20 06/03/24 Rx montelukast 10 mg tablet 10 mg PO DAILY #90 tabs 09/19/20 06/03/24 Rx (Singulair) levothyroxine 112 mcg tablet 112 mcg PO DAILY #90 tabs 01/15/21 06/03/24 Rx glipizide 5 mg tablet 10 mg PO BID 10/22/21 06/03/24 History metformin 500 mg tablet 500 mg PO QAM 10/22/21 06/03/24 History metoprolol tartrate 25 mg tablet 25 mg PO .pm 10/22/21 06/03/24 History furosemide 80 mg tablet 80 mg PO DAILY 01/15/22 06/03/24 History gabapentin 100 mg capsule 300 mg PO DAILY 01/15/22 06/03/24 History rosuvastatin 10 mg tablet 10 mg PO DAILY 01/15/22 06/03/24 History aspirin 81 mg tablet 81 mg PO DAILY 03/05/23 06/03/24 History fluticasone propionate 50 2 spray intranasal BID 03/05/23 06/03/24 History mcg/actuation nasal spray,suspension mecobalamin (vitamin B12) 1,000 1,000 mcg PO DAILY 03/05/23 06/03/24 History mcg chewable tablet (B12 Active) metformin 500 mg tablet 1,000 mg PO HS 03/05/23 06/03/24 History vitamin B complex 1 cap PO DAILY 03/05/23 06/03/24 History Patient hx anesthesia problems: none Family hx anesthesia problems: none Results Review: All pre-operative results and documents have been reviewed as part of the pre- operative evaluation. [facility] Past Medical History Medical History (Updated 06/23/24 @ 17:51 by Trev Perez Jr., CRNA) Adenomatous colon polyp Asthma Asthma with COPD Body mass index (BMI) of 60.0 to 69.9 in adult Colon cancer screening COPD (chronic obstructive pulmonary disease) with chronic bronchitis Diastolic dysfunction Essential (primary) hypertension Hypothyroidism (acquired) Morbid (severe) obesity due to excess calories Nocturnal hypoxia Obstructive sleep apnea Other and unspecified hyperlipidemia Family History Family History Father Hypertension Mother Asthma Social History Social History Smoking status: Never smoker Alcohol intake: never Substance use: never Substance use type: does not use Living arrangements: with family Gender identity (if verbalized by the patient): Female Sexual Orientation (if Verbalized by the Patient): Straight or Heterosexual Spiritual care concerns: No Exam Day of Procedure 06/23/24 17:49 Patient weight: super morbidly obese
[2024-06-24 06:22] VITALS: BP 136/63; PULSE 92; RESP 22; TEMP 36.3; O2SAT 96; BMI 59.0
[2024-06-24] MEDS: LACTATED RINGERS 1,000 ML 150 ML IV CONT (06:39)
[2024-06-24 06:41] LABS: Glucose Point of Care 182 mg/dl (65-105)
--- NOTE | 2024-06-24 06:54 | P.PNAN_ITS ---
Anes - Eval Final PreProcedure Day of Procedure 06/24/24 06:54 Patient weight: super morbidly obese Heart: regular rate and rhythm Lungs: clear to auscultation Airway: Mallampati scale class II Neurological: alert and oriented Last oral intake: >/= 8 hours ASA classification: IV Emergent: no Anesthetic plan: proceed Anesthesia type and monitoring: general GIVS and standard monitoring Results Review: All pre-operative results and documents have been reviewed as part of the pre- operative evaluation. Informed Consent: The patient's anesthetic plan and its attendant risks and benefits were discus sed with the patient/family/POA. Questions were solicited and answers provided to the satisfaction of the patient/family/POA.
--- NOTE | 2024-06-24 07:14 | PM.HPGS ---
History of Present Illness History of Present Illness Consent: Risks, benefits, and alternatives have been discussed and questions answered. Patient agrees to proceed with procedure. Chief complaint: Personal hx. colon polyps Narrative: Daphne Lopez is a 68 year old female with colon polyps in 2021 Review of Systems Review of Systems: All systems reviewed & are unremarkable except as noted in HPI and below PMFSH Past Medical History Medical History (Updated 06/23/24 @ 17:51 by Trev Perez Jr., HEATING SYSTEMS INSTALLER) Adenomatous colon polyp Asthma Asthma with COPD Body mass index (BMI) of 60.0 to 69.9 in adult Colon cancer screening COPD (chronic obstructive pulmonary disease) with chronic bronchitis Diastolic dysfunction Essential (primary) hypertension Hypothyroidism (acquired) Morbid (severe) obesity due to excess calories Nocturnal hypoxia Obstructive sleep apnea Other and unspecified hyperlipidemia Family History Family History Father Hypertension Mother Asthma Social History Social History Smoking status: Never smoker Alcohol intake: never Substance use: never Substance use type: does not use Living arrangements: with family Gender identity (if verbalized by the patient): Female Sexual Orientation (if Verbalized by the Patient): Straight or Heterosexual Spiritual care concerns: No Meds Home Medications and Allergies Home Medications Medication Instructions Recorded Confirmed Type nystatin 100,000 unit/gram topical 1 applic topical BID PRN RASH 11/08/19 06/24/24 History powder cetirizine 10 mg tablet (Zyrtec) 10 mg PO DAILY 12/14/19 06/24/24 History multivitamin 1 tablet PO DAILY 06/23/20 06/24/24 History oxybutynin chloride 10 mg 10 mg PO DAILY 06/23/20 06/24/24 History tablet,extended release 24 hr lisinopril 20 mg tablet 20 mg PO DAILY #90 tabs 09/19/20 06/24/24 Rx montelukast 10 mg tablet 10 mg PO DAILY #90 tabs 09/19/20 06/24/24 Rx (Singulair) levothyroxine 112 mcg tablet 112 mcg PO DAILY #90 tabs 01/15/21 06/24/24 Rx glipizide 5 mg tablet 10 mg PO BID 10/22/21 06/24/24 History metformin 500 mg tablet 500 mg PO QAM 10/22/21 06/24/24 History metoprolol tartrate 25 mg tablet 25 mg PO .pm 10/22/21 06/24/24 History furosemide 80 mg tablet 80 mg PO DAILY 01/15/22 06/24/24 History gabapentin 100 mg capsule 300 mg PO DAILY 01/15/22 06/24/24 History rosuvastatin 10 mg tablet 10 mg PO DAILY 01/15/22 06/24/24 History aspirin 81 mg tablet 81 mg PO DAILY 03/05/23 06/24/24 History fluticasone propionate 50 2 spray intranasal BID 03/05/23 06/24/24 History mcg/actuation nasal spray,suspension mecobalamin (vitamin B12) 1,000 1,000 mcg PO DAILY 03/05/23 06/24/24 History mcg chewable tablet (B12 Active) metformin 500 mg tablet 1,000 mg PO HS 03/05/23 06/24/24 History vitamin B complex 1 cap PO DAILY 03/05/23 06/24/24 History Allergies Allergy/AdvReac Type Severity Reaction Status Date / Time cephalexin Allergy Unknown Unknown Verified 06/24/24 06:20 Penicillins Allergy Unknown Unknown Verified 06/24/24 06:20 Vital Signs Vital Signs - 24 hr 06/24/24 06:22 Temperature 97.4 F L Pulse Rate 92 Respiratory Rate 22 H Blood Pressure 136/63 Pulse Oximetry 96 Oxygen Delivery Room Air Exam Const: General: comfortable and no acute distress HENMT: Face/Nose/Sinus: Normal nares present Eyes: General: appearance normal, both eyes and all related structures Neck: Neck: no JVD Resp: Auscultation: clear to auscultation bilaterally Cardio: Rate: regular rate Rhythm: regular rhythm GI: Inspection: non-distended GI Palp: Yes Soft to palpation Skin: General skin exam: normal color Neuro: General: gait normal Speech: normal speech Extrem: General: normal to inspection Psych: Mental Status: mental status grossly normal Assessment and Plan Assessment and pl
[2024-06-24 07:51] VITALS: BP 109/57; PULSE 68; RESP 18; O2SAT 98
[2024-06-24 08:01] VITALS: BP 120/72; PULSE 68; RESP 23; O2SAT 98
[2024-06-24 08:11] VITALS: BP 130/64; PULSE 65; RESP 23; O2SAT 100
[2024-06-24 08:18] LABS: Glucose Point of Care 128 mg/dl (65-105)
== END 2024-06-24 08:31 | disposition home or self-care (01) ==
PROVIDERS: PCP Family Medicine; Visit Provider Internal Medicine Gastroenterology
PROC: 0DJD8ZZ Inspection of Lower Intestinal Tract, Via Natural or Artificial Opening Endoscopic (ICD-10-PCS; CPT 45378; principal; 2024-06-24 07:30)
DX: Z12.11 Encounter for screening for malignant neoplasm of colon (principal); K64.8 Other hemorrhoids; Z86.0100 Personal history of colon polyps, unspecified; E66.01 Morbid (severe) obesity due to excess calories; Z68.43 Body mass index [BMI] 50.0-59.9, adult; I11.9 Hypertensive heart disease without heart failure; J44.9 Chronic obstructive pulmonary disease, unspecified; E03.9 Hypothyroidism, unspecified; G47.33 Obstructive sleep apnea (adult) (pediatric); E78.49 Other hyperlipidemia; Z79.84 Long term (current) use of oral hypoglycemic drugs; Z79.82 Long term (current) use of aspirin
CPT/HCPCS: G0105; 82948; J2003; J2704; J7120

== ENCOUNTER 2025-06-28 12:52 | Outpatient (CLI) | payer MEDICARE, SELFPAY ==
--- NOTE | ~2025-06-28 | US_ITS ---
US art doppler w press LE BI INDICATION: Bilateral carotid artery stenosis TECHNIQUE: Segmental pressures and plethysmographic and Doppler waveforms of the brachial and lower extremity arteries were obtained. COMPARISON: None. FINDINGS: Right and left brachial artery pressures of 136 mm Hg and 127 mm Hg, respectively, are concordant (normal difference <= 30 mmHg). There are biphasic waveforms throughout the lower extremity arteries bilaterally. The right ankle-brachial index (ANNALEE) is 0.93 (normal >= 0.9-1.0). The right great toe-brachial index (TBI) is 0.56 (normal >= 0.60). The left ANNALEE is 1.01. The left TBI is 0.56. IMPRESSION: 1. Normal ankle-brachial indices. 2: Mildly decreased toe brachial indices consistent with peripheral arterial disease. Reviewed, dictated and finalized at location O. IMPRESSION: 1. Normal ankle-brachial indices. 2: Mildly decreased toe brachial indices consistent with peripheral arterial d isease.
--- NOTE | ~2025-06-28 | US_ITS ---
Clinical History: BI Carotid artery stenosis Examination: US carotid duplex BI Comparison: 02/12/2023 Technique: Grayscale, color, duplex/spectral Doppler sonography carotid and vertebral arteries. Distal CCA and Peak ICA systolic velocities provided. Society of Radiologists in Ultrasound (SRU) consensus criteria utilized, indirectly assessing stenosis by velocities. Findings: Mild plaque. Right side: CCA - 93 cm/sec. ICA - 98 cm/sec. ICA/CCA - 1.1 Left Side: CCA - 84 cm/sec. ICA - 98 cm/sec. ICA/CCA - 1.2 Normal antegrade flow measured bilateral vertebral arteries. IMPRESSION: 1. No hemodynamically significant ICA stenosis (i.e., if any stenosis, less than 50%). 2. Normal bilateral antegrade vertebral artery flow. Stenosis measured by Society of Radiologists in Ultrasound (SRU) criteria. Reviewed, dictated and finalized at location R. IMPRESSION: 1. No hemodynamically significant ICA stenosis (i.e., if any stenosis, less th an 50%). 2. Normal bilateral antegrade vertebral artery flow. Stenosis measured by Society of Radiologists in Ultrasound (SRU) criteria.
--- OUTSIDE RECORDS SUMMARY | 2025-06-28 15:41 | XMS_ITS | Clinical Summary ---
Author Organization [facility] Address [address] [place] [address] Care Team Providers Care Lead Refinery Supervisor Name Role Phone Unavailable Primary Care Provider Unavailabl e Social History Tobacco Use Types Packs/Day Years Used Date Smoking Tobacco: Never Assessed Comments Unknown Sex and Gender Information Value Date Recorded Sex Assigned at Not on file Legal Sex Female 8:31 PM CDT Gender Identity Not on file Sexual Orientation Not on file Plan of Treatment Health Maintenance Due Date Last Done Comments Colorectal Cancer Screening Colonoscopy (10 Years) 1955 Hepatitis C 1973 DTaP, Tdap and Td Vaccines ( 1 - Tdap) 1974 Mammogram Screening 1995 Pneumococcal Vaccine: 50+ Years (1 of 1 - PCV) 2005 Zoster Vaccines (1 of 2) 2005 Annual Medicare Wellness Visit 2020 Dexa Scan (General) 2020 COVID-19 Vaccine (3 - 2024-2 6 season) 2025 11/29/2020, 11/02/2020 Influenza Adult (#1) 2025 09/19/2019 RSV Immunization or 60+ Years (1 - 1-dose 75+ series) 2030 Hepatitis A Vaccines Aged Out No long er eligible based on patient's age to complete this topic Meningococcal B Vaccine Aged Out No l onger eligible based on patient's age to complete this topic Meningococcal Vaccine Aged Out No bobbi emmett eligible based on patient's age to complete this topic RSV Immunizations Under 20 Months Aged Out No longer eligible b ased on patient's age to complete this topic Insurance [facility]ICARE [facility]
--- OUTSIDE RECORDS SUMMARY | 2025-06-28 15:41 | XMS_ITS | Clinical Summary ---
Author Organization [facility] [address] Address [address] [place] [address] Care Team Providers Care Bridge Maintenance Worker Name Role Phone Marla Fields MD Primary Care Provider Allergies Active Allergy Reactions Criticality Noted Date Comments Cephalexin Penicillins Medications montelukast (SINGULAIR) 10 mg tablet take 1 tablet by oral route every day in the evening 0 0 4 Active lisinopril (PRINIVIL,ZESTRI L) 20 mg tablet take 1 tablet by oral route every day 0 0 4 Active fluticasone (FLONASE) 50 mcg/actuation nasal spray inhale 2 spray by Intranasal route every day in each nostril 0 spray 0 4 Active b complex vitamins tablet take 1 by Oral route once 0 0 5 Active cetirizine (ZyrTEC) 10 mg tablet take 1 tablet by oral route every day 0 0 5 Active multivitamin tablet tablet take 1 tablet by oral route every day with food 0 0 5 Active oxybutynin XL (DITROPAN-XL) 10 mg 24 hr tablet 1 Active UNABLE TO FIND Take 1 each by mouth 2 (two) times a day Perimine (herbal supplement from chiropractor) Active glipiZIDE (GLUCOTROL) 5 mg tablet Take 2 tablets (10 mg total) by mouth 2 (two) times a day before breakfast and lunch 2 Active metFORMIN (GLUCOPHAGE) 500 mg tablet Take 1 tablet (500 mg total) by mouth 2 (two) times a day with meals 1,000 mg in evening 2 Active levothyroxine (SYNTHROID) 112 mcg tablet 2 Active aspirin 81 mg enteric coated tabletIndication s:Bilateral carotid artery stenosis Take 1 tablet (81 mg total) by mouth daily 30 tablet 11 2 Active nystatin powder 2 Active furosemide (LASIX) 80 mg tablet One tablet in the am and 40 mg in the afternoon 2 Active lutein-zeaxanthi n 25-5 mg capsule Take by mouth Active rosuvastatin (CRESTOR) 10 mg tabletIndication s:Right carotid bruit TAKE 1 TABLET BY MOUTH DAILY 90 tablet 3 2 Active metoprolol tartrate (LOPRESSOR) 25 mg immediate release tabletIndication s:Diastolic dysfunction TAKE 1 TABLET BY MOUTH IN THE MORNING AND ONE-HALF TABLET BY MOUTH IN THE EVENING 135 tablet 3 2 Active cyanocobalamin (Vitamin B-12) 1,000 mcg tabletIndication s:Prevention of Vitamin B12 Deficiency Take 1 tablet (1,000 mcg total) by mouth daily Active gabapentin (NEURONTIN) 300 mg capsule Take 1 capsule (300 mg total) by mouth 3 (three) times a day 4 Active furosemide (LASIX) 40 mg tablet Take 1 tablet (40 mg total) by mouth every evening 4 Active magnesium chloride 64 mg of elemental magnesium delayed release tabletIndication s:hypomagnesemia Take 1 tablet (64 mg of elemental magnesium total) by mouth Active metOLazone (ZAROXOLYN) 2.5 mg tabletIndication s:Chronic diastolic heart failure (HCC) Take 1 tablet (2.5 mg total) by mouth daily as needed (swelling) 30 tablet 5 Active dapagliflozin propanediol (FARXIGA) 10 mg tabletIndication s:Chronic diastolic heart failure (HCC) Take 1 tablet (10 mg total) by mouth daily 90 tablet 3 5 Active UNABLE TO FIND Take 1 each by mouth daily Aqua Sculpt - vegetable capsules to support weight loss Active ferrous sulfate ER 324 mg (65 mg iron) EC tabletIndication s:Iron Deficiency Anemia Take 65 mg by mouth daily with breakfast Active Active Problems Problem Noted Date Diagnosed Date Atypical chest pain 02/05/2023 Peripheral artery disease 02/05/2023 Bilateral carotid artery stenosis 07/30/2022 Chronic diastolic heart failure 06/29/2021 Bilateral leg pain 06/29/2021 Diastolic dysfunction 06/29/2021 Bilateral lower extremity edema 06/29/2021 Right carotid bruit 06/29/2021 Morbid obesity with BMI of 50.0-59.9, adult 06/09 Edema 06/03/2014 Overview (12/13/2016): Edema Hypothyroidism 06/03/2014 Overview (12/13/2016): Hypothyroidism MOROCHO (dyspnea on exertion) 06/03/2014 Overview (12/13/2016): SOB (shortness of breath) RICKEY (obstructive sleep apnea) 06/03/2014 Overview (12/13/2016): RICKEY (obstructive sleep apnea) Morbid obesity 06/03/2014 Overview (12/13/2016): Morbid obesity Hypertension 06/03/2014 Overview (12/13/2016): Hypertension Methicillin resistant Staphylococcus aureus infe ction 06/03/2014 Overview (12/13/2016): MRSA infection Asthma 06/03/2014 Overview (12/13/2016): Asthma Encounters Date Type Department Care Team Description 06/16/2025 2:15 PM CDT Office Visit [facility] [address] [place] [address] Jerod Anderson MD Chronic diastolic heart failure (HCC) (Primary Dx); Primary hypertension; Peripheral artery disease; Bilateral carotid artery stenosis; Morbid obesity with BMI of 50.0-59.9, adult (HCC) from Last 3 Months Medical History Medical History Date Comments Hx Other Medical seasonal allerg ies, HTN, yeast infections as well; Comments: MAF 06/03/2014 - Hypertension Thyroid disease Sleep apnea Asthma Family History Medical History Relation Name Comments Hypertension Brother Other Father CVA, irregular heartbeat ; Cancer Mother Other Mother complication fo llowing surgery; Relation Name Status Comments Brother Alive Father Alive Mother (Age 74) Social History Tobacco Use Types Packs/Day Years Used Date Smoking Tobacco: Never Smokeless Tobacco: Never Tobacco Cessation:Counseling Given: Not Answered Alcohol Use Standard Drinks/Week Comments No 0 (1 standard drink = 0.6 oz pur e alcohol) AUDIT-C Answer Date Recorded Q1: How often do you have a drink containing alc ohol? Never 06/29/2021 Average Number of Drinks Not on file 021 Frequency of Binge Drinking Not on file 06/09 Comments Unknown Sex and Gender Information Value Date Recorded Sex Assigned at Not on file Legal Sex Female 8:41 PM FAMILY SERVICE WORKER Gender Identity Not on file Sexual Orientation Not on file Obstetrics History Last Filed Vital Signs Vital Sign Reading Time Taken Comments Blood Pressure 100/54 06/16/2025 2:24 PM CDT Pulse 78 06/16/2025 2:24 PM CDT Temperature - - Respiratory Rate - - Oxygen Saturation 96% 06/16/2025 2:24 PM CDT Inhaled Oxygen Concentration - - Weight 156.5 kg (345 lb) 06/16/2025 2:24 PM CDT Height 162.6 cm (5' 4) 06/16/2025 2:24 PM CDT Body Mass Index 59.22 06/16/2025 2:24 PM CDT Plan of Treatment Health Maintenance Due Date Last Done Comments Breast Cancer Screening-Mammogram 1955 Colon Cancer Screening-Colonoscopy 1955 Depression Screening 1955 Fall Risk Assessment 1955 Hepatitis C Screening 1955 Osteoporosis Screening-Bone Density Scan 1955 Hepatitis B Screening 1973 Zoster Vaccine (1 of 2) 2005 Pneumococcal vaccine 65+ (2 of 2 - PCV) 05/19/2013 05/19/2012 Well Visit 65+ 2020 DTaP/Tdap/Td Vaccine (2 - Td or Tdap) 05/19/2022 05/19/2012 Influenza Vaccine (#1) 2025 0, 09/19/2019, 07/25/2017, Additional history exists Insurance MEDICARE [facility] MEDICARE [facility] Care Teams Bridge Maintenance Worker Relationship Specialty Start Date End Date Marla Fields MD [address] [place] [id number] PCP - General Family Medicine 11/21/21
== END 2025-06-28 12:53 | disposition home or self-care (01) ==
PROVIDERS: PCP Family Medicine; Visit Provider Internal Medicine Cardiovascular Disease
DX: I65.23 Occlusion and stenosis of bilateral carotid arteries (principal); I73.9 Peripheral vascular disease, unspecified
CPT/HCPCS: 93880; 93923